=== PATIENT | female | born 2000 | race Two or more races ===

== ENCOUNTER 2022-01-29 12:29 | Emergency (ER) | payer BC ==
[~2022-01-29] VITALS: Ht 149.9 cm; Wt 57.2 kg
--- NOTE | 2022-01-29 12:35 | NUR ---
BIBS FOR C/O HEADACHE, GEN BODY PAIN, N/V X 5 DAYS. TO ER BED 12. HOOKED TO MONITOR, CHANGED TO HOSP GOWN, WARM BLANKET PROVIDED. AWAITING MD LÓPEZ
--- NOTE | 2022-01-29 12:51 | NUR ---
DR BRAY AT BEDSIDE FOR EVAL
--- NOTE | 2022-01-29 12:51 | NUR ---
URINE SAMPLE COLLECTED
--- NOTE | 2022-01-29 12:55 | NUR ---
DR. BRAY W/ PT FOR EVAL
[2022-01-29] MEDS ORDERED: ONDANSETRON HCL/PF 4 MG/2 ML VIAL ONE (13:14)
[2022-01-29] MEDS: ONDANSETRON HCL/PF 4 MG/2 ML VIAL IVP ONE (13:23)
[2022-01-29 13:25] LABS: BASOPHILS % (AUTO) 0.3 % (0.0-2.0); HEMATOCRIT 41 % (33-45); LYMPHOCYTES # (AUTO) 2.6 K/uL (0.8-4.8); LYMPHOCYTES % (AUTO) 33.9 % (20.0-44.0); MEAN CORPUSCULAR HGB CONC 34 g/dl (31.0-36.0); MEAN CORPUSCULAR VOLUME 85 fL (82-100); MONOCYTES # (AUTO) 0.5 K/uL (0.1-1.30); NEUTROPHILS # (AUTO) 4.5 K/uL (1.8-8.9); NEUTROPHILS % (AUTO) 58.8 % (43.0-81.0); PLATELET COUNT (AUTO) 252 K/uL (150-450); RED BLOOD CELL COUNT(AUTO) 4.81 MIL/uL (4.0-5.2); WHITE BLOOD COUNT (AUTO) 7.6 K/uL (4.3-11.0)
[2022-01-29 14:04] LABS: CARBON DIOXIDE 29 mmol/L (21-32); CREATININE 0.7 mg/dL (0.6-1.3); GLUCOSE 78 mg/dL (74-106); UREA NITROGEN, BLOOD 8 mg/dL (7-18)
[2022-01-29 14:09] LABS: CHLORIDE 101 mmol/L (98-107); SODIUM SERUM 138 mmol/L (136-145)
[2022-01-29] MEDS ORDERED: KETOROLAC TROMETHAMINE 15 MG/ML VIAL ONE (16:56)
[2022-01-29] MEDS: KETOROLAC TROMETHAMINE INJ 30 MG/ML VIAL IV ONE (17:02)
[2022-01-29 17:48] VITALS: BP 114/60
--- NOTE | 2022-01-29 17:49 | NUR ---
IV removed. Catheter intact and site benign. Pressure and 4x4 applied to site. No bleeding noted.
--- NOTE | 2022-01-29 17:49 | NUR ---
Patient discharged to home in stable condition. Written and verbal after care instructions given. Patient verbalizes understanding of instruction.
== END 2022-01-29 17:49 | disposition home or self-care (01) ==
LOC: ER 12:54
DX: R07.89 Other chest pain (principal); F19.10 Other psychoactive substance abuse, uncomplicated; G43.909 Migraine, unspecified, not intractable, without status migrainosus; M79.7 Fibromyalgia; Z60.2 Problems related to living alone
CPT/HCPCS: 99285; 96374; 71045; 96375; 93005 ×2; 85025; 80048; 85378; 84703; 36415; 84484 ×2; 80307; J2405; J1885